=== PATIENT | male | born 1980 | race Caucasian/White ===

== ENCOUNTER 2018-04-25 09:20 | Emergency (ER) | payer SELFPAY ==
[2018-04-25 09:30] VITALS: BP 144/89
[2018-04-25] MEDS ORDERED: KETOROLAC TROMETHAMINE 60 MG/2 ML SDV IM ONE (10:06)
--- NOTE | 2018-04-25 10:12 | ER Document Report ---
HPI - HPI Time Seen by Provider: 04/25/18 09:49 Pain Level: 4 Notes: Patient is a 38-year-old male with no significant past medical history aside from issues with carpal tunnel syndrome who presents the emergency department complaining of bilateral hand numbness, pain, and tingling after using his hands a lot every day. Patient states that it was occurring about once a week, but has become daily since then. Patient states that he works constantly with his hands. Patient states that he will wake up in the middle night and his hands will be in pain and numb. He has not seen a specialist for this issue. No other known injury or bruising. Denies any headache, fever, neck pain, URI, sore throat, chest pain, palpitations, syncope, cough, shortness of breath, wheeze, dyspnea, abdominal pain, nausea/vomiting/diarrhea, urinary retention, dysuria, hematuria, loss of control of bowel or bladder, saddle anesthesia, muscle paralysis, or rash. - ROS Systems Reviewed and Negative: Yes All other systems reviewed and negative - CONSTITUTIONAL Constitutional: DENIES: Fever, Chills - EENT EENT: REPORTS: Sore Throat, Ear Pain. DENIES: Eye problems - NEURO Neurology: DENIES: Headache, Weakness, Vision blurred, Dizzinesss / Vertigo - CARDIOVASCULAR Cardiovascular: DENIES: Chest pain - RESPIRATORY Respiratory: REPORTS: Coughing - INTERMITTENT. DENIES: Trouble Breathing - GASTROINTESTINAL Gastrointestinal: DENIES: Abdominal Pain, Black / Bloody Stools - URINARY Urinary: DENIES: Dysuria, Urgency, Frequency - REPRODUCTIVE Reproductive: DENIES: : - MUSCULOSKELETAL Musculoskeletal: REPORTS: Extremity pain Past Medical History - Social History Smoking Status: Current Every Day Smoker Chew tobacco use (# tins/day): No Frequency of alcohol use: Social Drug Abuse: None Family History: Arthritis, CVA, Hyperlipidemia, Hypertension, Malignancy, Thyroid Disfunction Patient has suicidal ideation: No Patient has homicidal ideation: No Pulmonary Medical History: Reports: Hx Asthma Neurological Medical History: Reports: Hx Migraine Renal/ Medical History: Denies: Hx Peritoneal Dialysis Musculoskeletal Medical History: Reports Hx Musculoskeletal Trauma - Clavicle fracture Psychiatric Medical History: Reports: Hx Depression Traumatic Medical History: Reports: Hx Fractures - Clavicle - Immunizations Immunizations up to date: No Hx Diphtheria, Pertussis, Tetanus Vaccination: No Vertical Provider Document - CONSTITUTIONAL Agree With Documented VS: Yes Notes: PHYSICAL EXAMINATION: GENERAL: Well-appearing, well-nourished and in no acute distress. NECK: Normal range of motion, supple without lymphadenopathy. Spurling negative. No midline tenderness. LUNGS: Breath sounds clear to auscultation bilaterally and equal. No wheezes rales or rhonchi. HEART: Regular rate and rhythm without murmurs, rubs, gallops. Musculoskeletal: Wrists b/l: FROM to passive/active. Strength 5+/5. N/V intact distal. + tinel/phalen b/l. Extremities: No cyanosis, clubbing, or edema b/l. Peripheral pulses 2+. Capillary refill less than 3 seconds. NEUROLOGICAL: Normal speech, normal gait. Normal sensory, motor exams PSYCH: Normal mood, normal affect. SKIN: Warm, Dry, normal turgor, no rashes or lesions noted. - INFECTION CONTROL TRAVEL OUTSIDE OF THE U.S. IN LAST 30 DAYS: No Course - Re-evaluation Re-evalutation: 04/25/18 10:08 Patient is an afebrile, well-hydrated, 38-year-old male who presents to the ED with b/l wrist/hand pain, suspect CTS with positive tinel/phalen. Vitals are acceptable without any significant tachycardia, tachypnea, or hypoxia. PE is otherwise unremarkable for any neurovascular compromise, obvious tendon/ligament rupture, obvious fracture/dislocation, septic joint. Cock up given today b/l along with toradol IM. Patient is nontoxic-appearing. . Conservative measures otherwise for symptoms. Recheck with your PCM in 3-5 days. Schedule a consult with orthopedics. Return to the ED with any worsening/concerning symptoms otherwise as reviewed in discharge. Patient is in agreement. - Vital Signs Vital signs: Temp Pulse Resp BP Pulse Ox 97.6 F 85 16 144/89 H 97 04/25/18 09:29 04/25/18 09:29 04/25/18 09:29 04/25/18 09:29 04/25/18 09:29 Discharge - Discharge Clinical Impression: Pain of both wrist joints, Carpal tunnel syndrome on both sides Condition: Stable Disposition: HOME, SELF-CARE Instructions: Carpal Tunnel Syndrome ([facility]) Additional Instructions: Rest, Ice, Compression, Elevation Use splint as directed Tylenol/ibuprofen as needed F/u with your PCP in 3-5 days for a recheck Call orthopedics tomorrow to schedule an appointment for further evaluation and management Return to the ED with any worsening symptoms and/or development of fever, headache, chest pain, palpitations, syncope, shortness of breath, trouble breathing, abdominal pain, n/v/d, muscle weakness/paralysis, numbness/tingling, swelling, redness, or other worsening symptoms that are concerning to you. Prescriptions: Diclofenac Sodium [Voltaren] 4 gm TP QID PRN #100 gel..gm. PRN Reason: Forms: Elevated Blood Pressure, Smoking Cessation Education Referrals: [facility] [Provider Group] - Follow up in 3-5 days
== END 2018-04-25 10:56 | disposition home or self-care (01) ==
LOC: ER 09:20
DX: G56.03 Carpal tunnel syndrome, bilateral upper limbs (principal); M25.531 Pain in right wrist; M25.532 Pain in left wrist; R20.0 Anesthesia of skin; M79.641 Pain in right hand; M79.642 Pain in left hand; R05 Cough; J02.9 Acute pharyngitis, unspecified; H92.09 Otalgia, unspecified ear; F17.200 Nicotine dependence, unspecified, uncomplicated; J45.909 Unspecified asthma, uncomplicated
CPT/HCPCS: 99283; 96372; L3908 ×2; J1885

== ENCOUNTER 2018-08-16 20:46 | Emergency (ER) | payer SELFPAY ==
[2018-08-16 21:44] LABS: ABSOLUTE BASOPHILS # (AUTO) 0.1 10^3/uL (0.0-0.2); ABSOLUTE EOSINOPHILS # (AUTO) 0.1 10^3/uL (0.0-0.6); ABSOLUTE LYMPHOCYTES (AUTO) 2.3 10^3/uL (0.5-4.7); ABSOLUTE MONOCYTES (AUTO) 1.1 10^3/uL (0.1-1.4); EOSINOPHILS % (AUTO) 1.1 % (0-6); HEMATOCRIT 45.5 % (37.9-51.0); LYMPHOCYTES % (AUTO) 21.5 % (13-45); MEAN CORPUSCULAR HEMOGLOBIN 31.8 pg (27.0-33.4); MEAN CORPUSCULAR HGB CONC 35.1 g/dL (32.0-36.0); MEAN CORPUSCULAR VOLUME 91 fl (80-97); MONOCYTES % (AUTO) 10.5 % (3-13); PLATELET COUNT 336 10^3/uL (150-450); RED BLOOD COUNT 5.03 10^6/uL (4.35-5.55); RED CELL DISTRIBUTION WIDTH 13.9 % (11.5-14.0); SEGMENTED NEUTROPHILS % (AUTO) 65.9 % (42-78); TOTAL CELLS COUNTED % (AUTO) 100 %; WHITE BLOOD COUNT 10.6 10^3/uL (4.0-10.5)
[2018-08-16 22:03] LABS: ALANINE AMINOTRANSFERASE 31 U/L (21-72); ALBUMIN 4.7 g/dL (3.5-5.0); ALCOHOL < 10 mg/dL (NONE DETECTED); ALKALINE PHOSPHATASE 103 U/L (38-126); ANION GAP 13 (5-19); ASPARTATE AMINO TRANSFERASE 22 U/L (17-59); BILIRUBIN,DIRECT 0.3 mg/dL (0.0-0.4); BILIRUBIN,TOTAL 0.9 mg/dL (0.2-1.3); BLOOD UREA NITROGEN 16 mg/dL (7-20); CALCIUM 9.8 mg/dL (8.4-10.2); CARBON DIOXIDE 25 mmol/L (22-30); CHLORIDE 98 mmol/L (98-107); GLUCOSE 111 mg/dL (75-110); SODIUM 136.4 mmol/L (137-145); TOTAL PROTEIN 7.5 g/dL (6.3-8.2)
[2018-08-16] MEDS ORDERED: LORAZEPAM INJ 2 MG/1 ML VIAL IV ONE (22:24)
[2018-08-16] MEDS ORDERED: NICOTINE 14 MG/24 HR PATCH.TD24 TD ONE (22:28)
--- NOTE | 2018-08-16 22:41 | ER Document Report ---
ED General <LIAM TYSONIME - Last Filed: 08/17/18 11:27> <JARET ROLDAN - Last Filed: 08/17/18 11:52> <HEENA GARVEY - Last Filed: 08/17/18 12:03> - General TRAVEL OUTSIDE OF THE U.S. IN LAST 30 DAYS: No <MIGUEL LOZANO - Last Filed: 08/17/18 20:19> - General Chief Complaint: ETOH Abuse Stated Complaint: ALCOHOL WITHDRAWAL Time Seen by Provider: 08/16/18 21:55 Primary Care Provider: [facility] [Outside] - 08/17/18 3:00 pm Notes: 33-year-old male with history of bipolar depression, alcoholism presents to the emergency department for alcohol relapse for 1 month and acute withdrawal today. Patient states he is deeply depressed and has had suicidal ideations. Patient does not have an active plan. Patient has no homicidal ideations. Patient states he normally drinks 1/4 to 1/2 gallon of whiskey per day but has had 2 beers today early this morning. Patient is tremulous and diaphoretic during interview. Patient states that he needs help. Patient feels like that "seizures are trying to happen". Patient has had withdrawal seizures in the past he states. Patient denies any fevers or recent illness, denies any auditory or visual hallucinations. Denies shortness of breath or chest pain, denies palpitations, but states that he feels that he is getting "smothered". Patient is tachycardic at approximately 120. (MIGUEL LOZANO) - Related Data Allergies/Adverse Reactions: propranolol [Propranolol] Allergy (Unknown, Verified 08/16/18 20:48) Past Medical History - Social History Smoking Status: Current Every Day Smoker Family History: Arthritis, CVA, Hyperlipidemia, Hypertension, Malignancy, Thyroid Disfunction Pulmonary Medical History: Reports: Hx Asthma Neurological Medical History: Reports: Hx Migraine Renal/ Medical History: Denies: Hx Peritoneal Dialysis Musculoskeletal Medical History: Reports Hx Musculoskeletal Trauma - Clavicle fracture Psychiatric Medical History: Reports: Hx Depression Traumatic Medical History: Reports: Hx Fractures - Clavicle - Immunizations Immunizations up to date: No Hx Diphtheria, Pertussis, Tetanus Vaccination: No <MIGUEL LOZANO - Last Filed: 08/17/18 20:19> Review of Systems - Review of Systems Constitutional: See HPI EENT: No symptoms reported Cardiovascular: See HPI Respiratory: See HPI Gastrointestinal: No symptoms reported Genitourinary: No symptoms reported Male Genitourinary: No symptoms reported Musculoskeletal: No symptoms reported Skin: No symptoms reported Hematologic/Lymphatic: No symptoms reported Neurological/Psychological: See HPI <ALEKSANDRMIGUEL BURGER - Last Filed: 08/17/18 20:19> Physical Exam <BLAKEMIGUEL - Last Filed: 08/17/18 20:19> - Vital signs Vitals: Temp Pulse Resp BP Pulse Ox 98.4 F 120 H 24 H 175/122 H 98 08/16/18 21:09 08/16/18 21:09 08/16/18 21:09 08/16/18 21:09 08/16/18 21:09 - Notes Notes: PHYSICAL EXAMINATION: Reviewed vital signs and charting by RN GENERAL: Alert, interacts well. No acute distress. HEAD: Normocephalic, atraumatic. EYES: Pupils equal and round. Extraocular movements intact. ENT: Oral mucosa moist, tongue midline. NECK: Full range of motion. Trachea midline. LUNGS: Clear to auscultation bilaterally, no wheezes, rales, or rhonchi. No respiratory distress. HEART: Regular rate and rhythm. No murmur ABDOMEN: soft, non-tender. No distention. Bowel sounds present EXTREMITIES: Moves all 4 extremities spontaneously. No edema, No cyanosis. PSYCH: Normal affect, depressed mood. Suicidal ideations with no active plan. SKIN: Warm, dry, normal turgor. No rashes or lesions noted. (MIGUEL LOZANO) Course - Laboratory Result Diagrams: 08/16/18 21:33 08/16/18 21:33 <PAULINA TYSON - Last Filed: 08/17/18 11:27> - Laboratory Result Diagrams: 08/16/18 21:33 08/16/18 21:33 <JARET ROLDAN - Last Filed: 08/17/18 11:52> - Laboratory Result Diagrams: 08/16/18 21:33 08/16/18 21:33 <HEENA GARVEY - Last Filed: 08/17/18 12:03> - Laboratory Result Diagrams: 08/16/18 21:33 08/16/18 21:33 <MIGUEL LOZANO - Last Filed: 08/17/18 20:19> - Re-evaluation Re-evalutation: 08/16/18 22:40 Patient comes here seeking help for acute alcohol withdrawal and suicidal ideations. Patient given Ativan 1 mg IV for tremulousness and for diaphoresis and tachycardia. 08/17/18 00:37 Patient responded well to the Ativan 1 mg IV. Patient heart rate is currently 90, respiratory rate 24, blood pressure 152/110. I initiated admission because of my concerns for alcohol withdrawal and potential decompensation is patient is a heavy drinker. Spoke with Dr. Yanes, hospitalist, who said that patient does not meet requirements for admission at this time. I do anticipate that the patient will decompensate and will remain in the ER as he is on IVC papers. 08/17/18 01:25 Patient lab work all returned and all within normal limits. Patient currently tachycardic at 110. I have ordered Ativan IV as needed. We will monitor panda ent here in the emergency department. 08/17/18 08:08 Patient at this point has been stable all night requiring an additional Ativan 1 mg IV. Patient has been sinus rhythm for the majority of the night with a brief period where he was in the low 100s. Most recent blood pressure 106/68, respirations 15, heart rate 94. Plan is to wait for psychiatric consultation and if patient does not meet criteria to be discharged we will discharge him with Librium. I have signed the patient out to Henea Garvey NP. (MIGUEL LOZANO) - Vital Signs Vital signs: Temp Pulse Resp BP Pulse Ox 98.2 F 106 H 16 136/123 H 99 08/17/18 04:09 08/17/18 12:14 08/17/18 12:14 08/17/18 12:14 08/17/18 12:14 - Laboratory Laboratory results interpreted by me: 08/16/18 08/16/18 08/16/18 21:33 21:33 22:34 WBC 10.6 H Sodium 136.4 L Glucose 111 H Urine Protein 30 H Urine Ketones TRACE H Urine Blood SMALL H Ur Leukocyte Esterase TRACE H Discharge <PAULINA TYSON - Last Filed: 08/17/18 11:27> <JARET ROLDAN - Last Filed: 08/17/18 11:52> <HEENA GARVEY - Last Filed: 08/17/18 12:03> <MIGUEL LOZANO - Last Filed: 08/17/18 20:19> - Discharge Clinical Impression: Alcohol withdrawal, Passive suicidal ideations Condition: Stable Disposition: HOME, SELF-CARE Additional Instructions: You have been evaluated both medical and behavioral health teams and been deemed appropriate for discharge. The behavioral health team was able to assist in locating a voluntary detox bed at the [facility]. You are highly encouraged to follow through with his voluntary placement. You have identified your mother as your transport to the [facility]. You are recommended to follow-up with both substance abuse and mental health services after your detox. AT ANY TIME, IF YOUR SYMPTOMS CHANGE SIGNIFICANTLY OR WORSEN OR YOU DEVELOP NEW SYMPTOMS, RETURN TO THE EMERGENCY DEPARTMENT IMMEDIATELY FOR RE-EVALUATION. Referrals: [facility] [Outside] - 08/17/18 3:00 pm
[2018-08-16 23:11] LABS: APPEARANCE,URINE CLEAR; BILIRUBIN,URINE NEGATIVE (NEGATIVE); COLOR,URINE YELLOW; GLUCOSE, URINE NEGATIVE (NEGATIVE); KETONES,URINE TRACE mg/dL (NEGATIVE); LEUKOCYTE ESTERASE,URINE TRACE (NEGATIVE); NITRITE,URINE NEGATIVE (NEGATIVE); PROTEIN,URINE 30 mg/dL (NEGATIVE); URINE SPECIFIC GRAVITY 1.019; UROBILINOGEN,URINE NEGATIVE mg/dL (<2.0)
[2018-08-16 23:28] LABS: URINE BARBITURATES SCREEN NEGATIVE; URINE BENZODIAZEPINES SCREEN NEGATIVE; URINE COCAINE SCREEN NEGATIVE; URINE MARIJUANA (THC) SCREEN NEGATIVE; URINE METHADONE SCREEN NEGATIVE; URINE PHENCYCLIDINE SCREEN NEGATIVE
[2018-08-16 23:32] LABS: URINE AMPHETAMINES SCREEN NEGATIVE
[2018-08-17] MEDS: LORAZEPAM INJ 2 MG/1 ML VIAL IV PRN ×3 (00:58→11:08)
[2018-08-17] MEDS ORDERED: ONDANSETRON HCL INJ/PF 4 MG/2 ML SDV IV ONE (07:20)
[2018-08-17] MEDS ORDERED: LORAZEPAM INJ 2 MG/1 ML VIAL IV ONE (07:20)
--- NOTE | 2018-08-17 08:34 | PSYCHOLOGICAL NOTE ---
Psych Note - Psych Note Date seen by psych provider: 08/17/18 Time seen by psych provider: 06:50 - 0700 Psych Note: Reason for Consult: Detox and Suicidal ideation 33-year-old male with history of bipolar depression, alcoholism presents to the emergency department for alcohol relapse for 1 month and acute withdrawal today. Patient states he is deeply depressed and has had suicidal ideations. Patient reports that approximately 1 month ago he relapsed and "lost e verything." He identifies the things he lost his "job, friends, belongings, trust, respect, phone" in addition to being unable to gather enough money for visitation with his daughter. He reports this happened because he relapsed. He disclosed he was sober for approximately 1 year and has been drinking up to a half a gallon a day for the last month. He reports this is an increase since the last time he had drink. Patient reports a diagnosis of bipolar however he has not been on any medication "in a long time... Almost 3 years." Patient has been inpatient detox and psychiatric treatment approximately 3 times. He reports that all 3 times was for both his suicidal ideation and for detox. He confirms he does not have access to any weapons and denies having a current plan. He reports that onset was approximately a couple weeks ago and states that mostly is just "ugly thoughts" however while he was working in [place] thought about how he could harm himself with "the tall buildings." Clinician contacted the [facility]. There is currently no beds available however they did conduct phone interview with patient. Clinician contacted [facility] in [place]; no bed availability at this time. Clinician received phone call from the [facility]. They have had a cancellation and now are able to offer the patient a voluntary bed at 3 PM. Patient confirms he can have his mother drive him. Patient is alert and orientated to person, place, time and circumstance. Mood is dysphoric with flat affect. Clinician notes patient is currently going through alcohol withdrawal and is demonstrating physical signs i.e. shaking. Patient endorses passive suicidal ideation i.e. no plans means or intent. Patient denies homicidal ideation. Delusions are absent behaviors congruent with an intact reality based presentation I organized and linear thought process. Eye contact is fair. Conversational speech is overall within normal rate, tone and prosody. Intellectual abilities appear to be within the average range. Attention and concentration are good. Insight, judgment, impulse control are fair. No medication recommendations at this time 291.81 (F10.239) Alcohol withdrawal; without perceptual disturbances 303.90 (F10.20) Alcohol use disorder; Severe 296.80 (F31.9) Unspecified bipolar disorder per history provided by patient Impression\\plan: Patient is cleared from acute psychiatric services. Patient reports passive suicidal ideation i.e. no plans means or intent. Patient expresses desire to for assistance in sobriety and currently needs detox. Patient engaged in phone interview with the [facility] and was later offered a bed for 3 PM today. Patient identifies his mother as his transport and confirms he will follow through with this voluntary placement. Patient is recommended to follow-up with both substance abuse and mental health services after he completes detox. Dr. Brandon was consulted to care management this patient; attending physicians in agreement with recommendations and disposition.
--- NOTE | 2018-08-17 09:42 | ER Document Report ---
Doctor's Note Notes: 08/17/18 09:41 Rounds: Chart reviewed and patient interviewed. Patient says he is an alcoholic who had gone for couple of years without drinking but started back drinking about a month ago due to his depression. He has a history of bipolar disorder. Having suicidal thoughts. Has been treated with lorazepam IV. Drug screen negative. Alcohol negative. Vital signs are all normal. Patient is awake and alert and neurologically intact. Patient appears to be medically stable for transfer or discharge. Dari Faust MD
[2018-08-17] MEDS ORDERED: LORAZEPAM 1 MG TABLET PO ONE (11:51)
[2018-08-17 12:16] VITALS: BP 136/123
== END 2018-08-17 12:25 | disposition home or self-care (01) ==
LOC: ER 20:46
DX: F10.239 Alcohol dependence with withdrawal, unspecified (principal); R45.851 Suicidal ideations; R00.0 Tachycardia, unspecified; Z79.899 Other long term (current) drug therapy; F17.200 Nicotine dependence, unspecified, uncomplicated; J45.909 Unspecified asthma, uncomplicated
CPT/HCPCS: 99285; 36415; 80307 ×2; 83735; 85025; 80053; 81001; J2060 ×2; J2405

== ENCOUNTER 2019-04-25 11:40 | Emergency (ER) | payer SELFPAY ==
[2019-04-25] MEDS ORDERED: KETOROLAC TROMETHAMINE INJ/PF 30 MG/1 ML SDV IV ONE (14:42)
[2019-04-25] MEDS ORDERED: ONDANSETRON HCL INJ/PF 4 MG/2 ML SDV IV ONE (14:42)
[2019-04-25] MEDS ORDERED: NORMAL SALINE 1000 ML 1,000 ML IV ONE ×2 (14:42→21:34)
--- NOTE | 2019-04-25 14:44 | ER Document Report ---
ED Medical Screen (RME) - General Stated Complaint: VOMITING/FEVER/BLOOD IN URINE Notes: HPI: 39-year-old male presenting to the emergency department complaining of hematuria that began 5 to 6 days ago. Patient began having chills nausea and vomiting. Did not have abdominal or flank pain initially, states the hematuria seemed to clear up 3 days ago then reoccurred yesterday. He began having increasing pain in the bilateral flanks, abdomen and began having vomiting and nausea again today. Has not had a definitive fever but has had chills. Patient states that he is circumcised. No history of kidney stones or UTI I have greeted and performed a rapid initial assessment of this patient. A comprehensive ED assessment and evaluation of the patient, analysis of test results and completion of the medical decision making process will be conducted by additional ED providers PHYSICAL EXAMINATION: GENERAL: Well-appearing, well-nourished and in mild acute distress. HEAD: Atraumatic, normocephalic. EYES: sclera anicteric, conjunctiva are normal. ENT: Moist mucous membranes. NECK: Normal range of motion LUNGS: Normal work of breathing, clear to auscultation HEART: 2+ radial pulses bilaterally, mild tachycardia ABD: limited by positioning for exam in triage. Mild generalized abdominal discomfort on palpation, mild bilateral CVA tenderness. EXTREMITIES: no pitting or edema. No cyanosis. NEUROLOGICAL: No focal neurological deficits. Moves all extremities spontaneously and on command. PSYCH: Normal mood, normal affect. SKIN: Warm, Dry, normal turgor, no rashes or lesions noted. TRAVEL OUTSIDE OF THE U.S. IN LAST 30 DAYS: No - Related Data Allergies/Adverse Reactions: propranolol [Propranolol] Allergy (Unknown, Verified 04/25/19 14:34) Past Medical History Pulmonary Medical History: Reports: Hx Asthma Neurological Medical History: Reports: Hx Migraine Renal/ Medical History: Denies: Hx Peritoneal Dialysis Musculoskeltal Medical History: Reports Hx Musculoskeletal Trauma - Clavicle fracture Psychiatric Medical History: Reports: Hx Depression Traumatic Medical History: Reports: Hx Fractures - Clavicle - Immunizations Immunizations up to date: No Hx Diphtheria, Pertussis, Tetanus Vaccination: No Physical Exam - Vital signs Vitals: Temp Pulse Resp BP Pulse Ox 97.7 F 104 H 20 151/99 H 98 04/25/19 11:44 04/25/19 11:44 04/25/19 11:44 04/25/19 11:44 04/25/19 11:44 Course - Vital Signs Vital signs: Temp Pulse Resp BP Pulse Ox 97.7 F 104 H 20 151/99 H 98 04/25/19 11:44 04/25/19 11:44 04/25/19 11:44 04/25/19 11:44 04/25/19 11:44
[2019-04-25 15:42] LABS: ABSOLUTE EOSINOPHILS # (AUTO) 0.5 10^3/uL (0.0-0.6); ABSOLUTE LYMPHOCYTES (AUTO) 1.9 10^3/uL (0.5-4.7); ABSOLUTE MONOCYTES (AUTO) 0.7 10^3/uL (0.1-1.4); ABSOLUTE NEUT (AUTO) 7.9 10^3/uL (1.7-8.2); BASOPHILS % (AUTO) 0.3 % (0-2); EOSINOPHILS % (AUTO) 4.9 % (0-6); HEMATOCRIT 45.1 % (37.9-51.0); HEMOGLOBIN 15.3 g/dL (13.5-17.0); LYMPHOCYTES % (AUTO) 16.8 % (13-45); MEAN CORPUSCULAR HEMOGLOBIN 31.7 pg (27.0-33.4); MEAN CORPUSCULAR HGB CONC 33.9 g/dL (32.0-36.0); MEAN CORPUSCULAR VOLUME 93 fl (80-97); MONOCYTES % (AUTO) 6.1 % (3-13); PLATELET COUNT 290 10^3/uL (150-450); RED BLOOD COUNT 4.83 10^6/uL (4.35-5.55); SEGMENTED NEUTROPHILS % (AUTO) 71.9 % (42-78); TOTAL CELLS COUNTED % (AUTO) 100 %; WHITE BLOOD COUNT 11.1 10^3/uL (4.0-10.5)
[2019-04-25 15:53] LABS: APPEARANCE,URINE CLEAR; BILIRUBIN,URINE NEGATIVE (NEGATIVE); COLOR,URINE YELLOW; GLUCOSE, URINE NEGATIVE (NEGATIVE); KETONES,URINE NEGATIVE (NEGATIVE); LEUKOCYTE ESTERASE,URINE NEGATIVE (NEGATIVE); NITRITE,URINE NEGATIVE (NEGATIVE); PROTEIN,URINE NEGATIVE (NEGATIVE); URINE SPECIFIC GRAVITY 1.005; UROBILINOGEN,URINE NEGATIVE mg/dL (<2.0)
[2019-04-25 15:59] LABS: ALBUMIN 4.8 g/dL (3.5-5.0); ALKALINE PHOSPHATASE 102 U/L (38-126); ANION GAP 12 (5-19); ASPARTATE AMINO TRANSFERASE 21 U/L (17-59); BILIRUBIN,TOTAL 0.5 mg/dL (0.2-1.3); BLOOD UREA NITROGEN 9 mg/dL (7-20); CALCIUM 9.6 mg/dL (8.4-10.2); CARBON DIOXIDE 30 mmol/L (22-30); CHLORIDE 97 mmol/L (98-107); GLUCOSE 92 mg/dL (75-110); POTASSIUM 4.2 mmol/L (3.6-5.0); TOTAL PROTEIN 7.7 g/dL (6.3-8.2)
[2019-04-25] MEDS ORDERED: ONDANSETRON HCL INJ/PF 4 MG/2 ML SDV ONE (16:50)
[2019-04-25] MEDS ORDERED: KETOROLAC TROMETHAMINE INJ/PF 30 MG/1 ML SDV ONE (16:50)
--- NOTE | 2019-04-25 18:02 | RADIOLOGY REPORT (SQ) ---
EXAM DESCRIPTION: CT ABD/PELVIS WITH IV ONLY COMPLETED DATE/TIME: 04/25/2019 5:32 pm REASON FOR STUDY: flank pain/hematuria COMPARISON: None. TECHNIQUE: CT scan of the abdomen and pelvis performed using helical scanning technique with dynamic intravenous contrast injection. No oral contrast. Images reviewed with lung, soft tissue, and bone windows. Reconstructed coronal and sagittal MPR images reviewed. Delayed images for evaluation of the urinary system also acquired. All images stored on PACS. All CT scanners at this facility use dose modulation, iterative reconstruction, and/or weight based d osing when appropriate to reduce radiation dose to as low as reasonably achievable (ALARA). [facility]: Dose Right [facility]: CareDose [facility]: Dose Right [facility]: Teradose 4D [facility]: [id number] CONTRAST TYPE AND DOSE: contrast/concentration: Isovue 350.00 mg/ml; Total Contrast Delivered: 99.0 ml; Total Saline Delivered: 57.0 ml RENAL FUNCTION: None required. The patient is less than 50 years old. RADIATION DOSE: CT Rad equipment meets quality standard of care and radiation dose reduction techniq ues were employed. CTDIvol: 14.7 - 17.6 mGy. DLP: 1731 mGy-cm.. LIMITATIONS: None. FINDINGS: LOWER CHEST: No significant findings. No nodules or infiltrates. LIVER: Subcentimeter hypodense lesion adjacent to the gallbladder fossa, likely cyst but difficult to characterize secondary to size. No additional discrete lesions. No intrahepatic ductal dilation. SPLEEN: Normal size. No focal lesions. PANCREAS: No masses. No significant calcifications. No adjacent inflammation or peripancreatic fluid collections. Pancreatic duct not dilated. GALLBLADDER: No identified stones by CT criteria. No inflammatory changes to suggest cholecystitis. ADRENAL GLANDS: No significant masses or asymmetry. RIGHT KIDNEY AND URETER: No solid masses. Likely punctate nonobstructing upper pole stone. No hyd ronephrosis or hydroureter. LEFT KIDNEY AND URETER: No solid masses. 4 mm stone within the distal left ureter with minimal fulln ess of the upstream proximal ureter. Punctate nonobstructing interpolar stone. No hydronephrosis o r hydroureter. AORTA AND VESSELS: No aneurysm. No dissection. Renal arteries, SMA, celiac without stenosis. RETROPERITONEUM: No retroperitoneal adenopathy, hemorrhage or masses. BOWEL AND PERITONEAL CAVITY: No masses or inflammatory changes. No free fluid or peritoneal masses. APPENDIX: Normal. PELVIS: No mass. No free fluid. Normal bladder. ABDOMINAL WALL: No masses. No hernias. BONES: No significant or acute findings. OTHER: No other significant finding. IMPRESSION: 4 mm stone within the distal left ureter. Mild fullness of the upstream ureter without significant hydronephrosis. Additional punctate bilateral nonobstructing stones. Normal appendix. TECHNICAL DOCUMENTATION: JOB ID: [id number] Quality ID # [id number]: Final reports with documentation of one or more dose reduction techniques (e.g., Au tomated exposure control, adjustment of the mA and/or kV according to patient size, use of iterative reconstruction technique) 2010 [employer]- All Rights Reserved Reading location - IP/workstation name: [email or web address]
[2019-04-25] MEDS ORDERED: MORPHINE SULFATE 10 MG/ML INJ IV ONE (21:34)
[2019-04-25] MEDS ORDERED: TAMSULOSIN HCL 0.4 MG CAP.SR.24H PO ONE (21:34)
[2019-04-25] MEDS ORDERED: IPRATROPIUM/ALBUTEROL 0.5-2.5 MG/3 ML AMPUL NEB ONE (21:35)
--- NOTE | 2019-04-25 21:35 | ER Document Report ---
ED Medical Screen (RME) - General Chief Complaint: Flank Pain Stated Complaint: VOMITING/FEVER/BLOOD IN URINE Time Seen by Provider: 04/25/19 21:19 Mode of Arrival: Ambulatory Information source: Patient Notes: 39-year-old male presents emergency department 4-day history of hematuria and left flank pain. Denies any history of stones. He does report occasional chills and cold sweats. Reports nausea, denies vomiting or diarrhea. Nothing makes the pain worse or better. He states he tried taking Azo at home, states this made the bleeding appeared to be worse. And also made the pain worse. TRAVEL OUTSIDE OF THE U.[place]. IN LAST 30 DAYS: No - Related Data Allergies/Adverse Reactions: propranolol [Propranolol] Allergy (Unknown, Verified 04/25/19 14:34) Home Medications: [email or web address] Past Medical History - General Information source: Patient - Social History Chew tobacco use (# tins/day): No Frequency of alcohol use: Social Drug Abuse: Marijuana Family history: Reviewed & Not Pertinent Pulmonary Medical History: Reports: Hx Asthma Neurological Medical History: Reports: Hx Migraine Renal/ Medical History: Denies: Hx Peritoneal Dialysis Musculoskeltal Medical History: Reports Hx Musculoskeletal Trauma - Clavicle fracture Psychiatric Medical History: Reports: Hx Depression Traumatic Medical History: Reports: Hx Fractures - Clavicle - Immunizations Immunizations up to date: No Hx Diphtheria, Pertussis, Tetanus Vaccination: No Physical Exam - Vital signs Vitals: Temp Pulse Resp BP Pulse Ox 97.7 F 104 H 20 151/99 H 98 04/25/19 11:44 04/25/19 11:44 04/25/19 11:44 04/25/19 11:44 04/25/19 11:44 Course - Vital Signs Vital signs: Temp Pulse Resp BP Pulse Ox 97.7 F 104 H 20 151/99 H 98 04/25/19 11:44 04/25/19 11:44 04/25/19 11:44 04/25/19 11:44 04/25/19 11:44 - Laboratory Result Diagrams: 04/25/19 15:00 04/25/19 15:00 Laboratory results interpreted by me: 04/25/19 04/25/19 15:00 15:00 WBC 11.1 H Chloride 97 L
--- NOTE | 2019-04-25 21:41 | ER Document Report ---
ED GI/ - General Chief Complaint: Flank Pain Stated Complaint: VOMITING/FEVER/BLOOD IN URINE Time Seen by Provider: 04/25/19 21:19 Mode of Arrival: Ambulatory Information source: Patient Notes: 39-year-old male presents emergency department 4-day history of hematuria and left flank pain. Denies any history of stones. He does report occasional chills and cold sweats. Reports nausea, denies vomiting or diarrhea. Nothing makes the pain worse or better. He states he tried taking Azo at home, states this made the bleeding appeared to be worse. And also made the pain worse. TRAVEL OUTSIDE OF THE [place] IN LAST 30 DAYS: No - Related Data Allergies/Adverse Reactions: propranolol [Propranolol] Allergy (Unknown, Verified 04/25/19 14:34) Home Medications: [facility] Past Medical History - General Information source: Patient - Social History Smoking Status: Current Every Day Smoker Chew tobacco use (# tins/day): No Frequency of alcohol use: Social Drug Abuse: Marijuana Family History: Arthritis, CVA, Hyperlipidemia, Hypertension, Malignancy, Thyroid Disfunction Patient has suicidal ideation: No Patient has homicidal ideation: No Pulmonary Medical History: Reports: Hx Asthma Neurological Medical History: Reports: Hx Migraine Renal/ Medical History: Denies: Hx Peritoneal Dialysis Musculoskeletal Medical History: Reports Hx Musculoskeletal Trauma - Clavicle fracture Psychiatric Medical History: Reports: Hx Depression Traumatic Medical History: Reports: Hx Fractures - Clavicle - Immunizations Immunizations up to date: No Hx Diphtheria, Pertussis, Tetanus Vaccination: No Review of Systems - Review of Systems Constitutional: Chills Respiratory: Wheezing Genitourinary: Dysuria, Flank pain, Hematuria -: Yes All other systems reviewed and negative Physical Exam - Vital signs Vitals: Temp Pulse Resp BP Pulse Ox 97.7 F 104 H 20 151/99 H 98 04/25/19 11:44 04/25/19 11:44 04/25/19 11:44 04/25/19 11:44 04/25/19 11:44 - Notes Notes: PHYSICAL EXAMINATION: GENERAL: Well-appearing, well-nourished and in no acute distress. HEAD: Atraumatic, normocephalic. EYES: Pupils equal round and reactive to light, extraocular movements intact, sclera anicteric, conjunctiva are normal. ENT: Nares patent, oropharynx clear without exudates. Moist mucous membranes. NECK: Normal range of motion, supple without lymphadenopathy LUNGS: Breath sounds clear to auscultation bilaterally and equal. Bilateral inspiratory and expiratory wheezes noted. Mildly increased work of breathing. HEART: Regular rate and rhythm without murmurs ABDOMEN: Soft, nontender, nondistended abdomen. No guarding, no rebound. No masses appreciated. Left CVA tenderness. Musculoskeletal: Normal range of motion, no pitting or edema. No cyanosis. NEUROLOGICAL: Cranial nerves grossly intact. Normal speech, normal gait. Normal sensory, motor exams PSYCH: Normal mood, normal affect. SKIN: Warm, Dry, normal turgor, no rashes or lesions noted. Course - Re-evaluation Re-evalutation: Patient with 4 mm stone in the left UVJ, no hydronephrosis or hydroureter. Patient does appear to be continued to have pain at the time my assessment. The time my assessment he is already received 1 L of normal saline, IV Toradol and IV Zofran. Will order additional liter of fluids, IV morphine and Flomax. Plan to at this time will discharge with return precautions once pain controlled and follow-up recommendations. - Vital Signs Vital signs: Temp Pulse Resp BP Pulse Ox 97.7 F 104 H 20 151/99 H 98 04/25/19 11:44 04/25/19 11:44 04/25/19 11:44 04/25/19 11:44 04/25/19 11:44 - Laboratory Result Diagrams: 04/25/19 15:00 04/25/19 15:00 Laboratory results interpreted by me: 04/25/19 04/25/19 15:00 15:00 WBC 11.1 H Chloride 97 L Discharge - Discharge Clinical Impression: Renal calculus, left, Nausea Condition: Stable Disposition: HOME, SELF-CARE Additional Instructions: Your symptoms should improve over the course of the next one week. If you continue to have pain for greater than one week or your pain is not controlled with the pain medications that you have been sent home with you need to return to the emergency department. Please also return if you develop fever, persistent vomiting, or any other symptoms that are concerning to you. You should take ibuprofen 600 mg every 6 hours and use the Percocet as prescribed only for pain not controlled by ibuprofen. You are also been sent home with a medication called Flomax to help pass the stone. You've been given Zofran to assist with nausea. Please follow-up with urology in the next 2-3 days IF not improving. Prescriptions: Tamsulosin HCl [Flomax] 0.4 mg PO DAILY #7 cap.er.24h Oxycodone HCl/Acetaminophen [Percocet 5-325 mg Tablet] 1 - 2 tab PO Q4H PRN #15 tablet PRN Reason: Ondansetron [Zofran Odt 4 mg Tablet] 1 - 2 tab PO Q4H PRN #15 tab.rapdis PRN Reason: For Nausea/Vomiting Referrals: GERI AQUINO MD [NO LOCAL MD] - Follow up as needed
[2019-04-25] MEDS ORDERED: ONDANSETRON ODT 4 MG TAB (6 TAB/ER DISP) PO PRN (21:43)
[2019-04-25] MEDS ORDERED: HYDROCODONE/ACETAMINOPHEN 5-325 MG (6 TAB/ER DISP) PO PRN (21:43)
[2019-04-26 00:21] VITALS: BP 110/54
== END 2019-04-26 00:20 | disposition home or self-care (01) ==
LOC: ER 11:40
DX: N20.0 Calculus of kidney (principal); R11.0 Nausea; R10.9 Unspecified abdominal pain; R30.0 Dysuria; R31.9 Hematuria, unspecified; F17.200 Nicotine dependence, unspecified, uncomplicated; J45.909 Unspecified asthma, uncomplicated
CPT/HCPCS: 94640; 99284; 96361; 96374; 96375; 36415; 87040; 85025; 87077; 80053; 81001; 87186; 87150 ×26; 74177; J1885; J2270; J2405; J7030; J7620

== ENCOUNTER 2019-06-01 11:15 | Emergency (ER) | payer SELFPAY ==
--- NOTE | 2019-06-01 12:09 | ER Document Report ---
HPI - HPI Patient complains to provider of: URI Onset: Other - 2 days Onset/Duration: Gradual Quality of pain: Achy Context: Patient presents to the RTC for complaints of upper respiratory symptoms. Patient complains of chills body aches, runny nose, sore throat and cough. Patient denies any shortness of breath. Patient does complain of headache with nausea and some abdominal tenderness. Patient does have an underlying history of asthma and kidney stones and does smoke a pack per day. Associated Symptoms: Body/muscle aches, Nonproductive cough, Rhinnorhea Exacerbated by: Denies Relieved by: Denies Similar symptoms previously: Yes Recently seen / treated by doctor: No - ROS ROS below otherwise negative: Yes Systems Reviewed and Negative: Yes All other systems reviewed and negative - CONSTITUTIONAL Constitutional: REPORTS: Chills - EENT EENT: REPORTS: Sore Throat, Nasal Drainage-Clear, Congestion - RESPIRATORY Respiratory: REPORTS: Coughing - GASTROINTESTINAL Gastrointestinal: REPORTS: Nausea, Patient vomiting - REPRODUCTIVE Reproductive: DENIES: : - DERM Skin Color: Normal Skin Problems: None Past Medical History - General Information source: Patient - Social History Smoking Status: Current Every Day Smoker Occupation: self employed Family History: Arthritis, CVA, Hyperlipidemia, Hypertension, Malignancy, Thyroid Disfunction Pulmonary Medical History: Reports: Hx Asthma Neurological Medical History: Reports: Hx Migraine Renal/ Medical History: Reports: Hx Kidney Stones. Denies: Hx Peritoneal Dialysis Musculoskeletal Medical History: Reports Hx Musculoskeletal Trauma - Clavicle fracture Psychiatric Medical History: Reports: Hx Depression Traumatic Medical History: Reports: Hx Fractures - Clavicle Surgical Hx: Negative - Immunizations Immunizations up to date: No Hx Diphtheria, Pertussis, Tetanus Vaccination: No Vertical Provider Document - CONSTITUTIONAL Agree With Documented VS: Yes Exam Limitations: No Limitations General Appearance: WD/WN, No Apparent Distress - INFECTION CONTROL TRAVEL OUTSIDE OF THE [place] IN LAST 30 DAYS: No - HEENT HEENT: Atraumatic, Normocephalic, Pharyngeal Tenderness. negative: Pharyngeal Exudate, Pharyngeal Erythema - NECK Neck: Lymphadenopathy-Left, Lymphadenopathy-Right - RESPIRATORY Respiratory: No Respiratory Distress, Chest Non-Tender, Wheezing - Scattered wheezing - CARDIOVASCULAR Cardiovascular: Regular Rate, Regular Rhythm, No Murmur - MUSCULOSKELETAL/EXTREMETIES Musculoskeletal/Extremeties: MAEW - NEURO Level of Consciousness: Awake, Alert, Appropriate Motor/Sensory: No Motor Deficit - DERM Integumentary: Warm, Dry, No Rash Course - Re-evaluation Re-evalutation: 06/01/19 12:21 The patient was evaluated during the global Covid 19 pandemic, and that diagnosis was suspected/considered upon their initial presentation. Their evaluation, treatment and testing was consistent with current guidelines for patients who present with complaints or symptoms that may be related to Covid 19. Patient presents with upper respiratory symptoms worrisome for possible Covid 19. Patient does not have emergency worring symptoms such as difficulty breathing, shortness of breath, confusion or cyanosis. Patient appears suitable for discharge as they are not of an advanced age, do not have any chronic medical conditions such as diabetes, CAD, immune deficiency, or chronic kidney disease. Patient's vital signs are stable and patient is nontoxic in appearance. Good return precautions have been discussed with patient, patient verbalized understanding and is agreeable with discharge plan of care at this time. The patient has been informed that they may have pre-hypertension or hypertension based on a blood pressure reading in the emergency department. I recommend that patient call the primary care provider listed on their discharge instructions or a physician of their choice by this week to arrange follow-up for further evaluation of possible pre-hypertension or hypertension. - Laboratory Laboratory results interpreted by me: 06/01/19 14:30 Labs- Entire Visit 06/01/19 06/01/19 11:49 11:49 Influenza A (Rapid) NEGATIVE Influenza B (Rapid) NEGATIVE Group A Strep Rapid NEGATIVE Discharge - Discharge Clinical Impression: Wheezing, covid 19 screening, Elevated blood pressure reading Upper respiratory infection Qualifiers: URI type: unspecified URI Qualified Code(s): J06.9 - Acute upper respiratory infection, unspecified Condition: Stable Disposition: HOME, SELF-CARE Instructions: Upper Respiratory Illness ([facility]) Additional Instructions: Patient was provided with discharge information including: As a person under investigation for Covid 19, the [place] department of Health and Human Services, division of public health advises you to adhere to the following guidance until your test results are reported to you. If your test result is positive, you will receive additional information from your provider and your local health department at that time. Remain at home until you are cleared by the health provider or public health authorities. Keep a log of visitors to your home, notify any visitors to your home of your isolation status. If you plan to move to a new address or leave the county, notify the local health department in your County. Call your doctor or seek care if you have an urgent medical need. Before see [facility], call ahead to get instructions from the provider before arriving at the medical office clinic or hospital. Notify them that you are being tested for the virus that causes Covid 19 so that arrangements can be made, as necessary, to prevent transmission to others in the healthcare setting. Next, notify the local health department in your county. If a medical emergency arises and you need to call 911, inform the first responders that you are being tested for the virus that causes Covid 19. Next, notify the [facility] department in your critical access hospital. Prescriptions: Inhaler,Assist Device,Accesory [Optichamber] 1 each MC Q4 PRN #1 each PRN Reason: Albuterol Sulfate [Proair Hfa Inhalation Aerosol 8.5 gm Mdi] 2 puff IH Q4 PRN #1 mdi PRN Reason: Referrals: LOCALMD,NO [Primary Care Provider] - Follow up as needed
[2019-06-01 12:41] LABS: A TYPE INFLUENZA AG NEGATIVE (NEGATIVE); B INFLUENZA AG NEGATIVE (NEGATIVE)
[2019-06-01 14:31] VITALS: BP 176/110
== END 2019-06-01 14:44 | disposition home or self-care (01) ==
LOC: EDRDC 11:15
DX: J06.9 Acute upper respiratory infection, unspecified (principal); R03.0 Elevated blood-pressure reading, without diagnosis of hypertension; M79.10 Myalgia, unspecified site; R06.2 Wheezing; F17.200 Nicotine dependence, unspecified, uncomplicated; Z20.828 Contact with and (suspected) exposure to other viral communicable diseases; Z87.442 Personal history of urinary calculi
CPT/HCPCS: 87070; 87635; 87804; 87880; 99211

== ENCOUNTER 2019-08-25 23:53 | Emergency (ER) | payer SELFPAY ==
--- NOTE | 2019-08-26 00:14 | ER Document Report ---
ED Medical Screen (RME) - General Chief Complaint: ETOH Abuse Stated Complaint: ALCOHOL INTOXICATION Primary Care Provider: KERWIN SHAW [Primary Care Provider] - Follow up as needed Notes: Patient is a 39-year-old male who presents to the emergency department, dropped off by his mother who he states he lives with for alcohol intoxication. Patient was found sleeping on the floor in the waiting room. He is very aggressive with clenched fists, continues to stare down staff and will not answers questions appropriately. He says he has been drinking a lot of vodka. He will not give any specifics. States he is been using drugs but will not say which drugs. He is very avoidant of conversation and answering questions. Appears intoxicated. Does not appear to have any physical injuries. History and examination limited in triage secondary to patient's level of cooperation and intoxication. I have treated and performed a rapid initial assessment of this patient. A comprehensive ED assessment and evaluation of the patient, analysis of test results and completion of medical decision making process will be conducted by additional ED providers. TRAVEL OUTSIDE OF THE [place] IN LAST 30 DAYS: No - Related Data Allergies/Adverse Reactions: propranolol [Propranolol] Allergy (Unknown, Verified 04/25/19 14:34) Past Medical History Pulmonary Medical History: Reports: Hx Asthma Neurological Medical History: Reports: Hx Migraine Renal/ Medical History: Reports: Hx Kidney Stones. Denies: Hx Peritoneal Dialysis Musculoskeltal Medical History: Reports Hx Musculoskeletal Trauma - Clavicle fracture Psychiatric Medical History: Reports: Hx Depression Traumatic Medical History: Reports: Hx Fractures - Clavicle - Immunizations Immunizations up to date: No Hx Diphtheria, Pertussis, Tetanus Vaccination: No Physical Exam - Vital signs Vitals: Temp Pulse Resp BP Pulse Ox 99.0 F 106 H 20 147/82 H 95 08/26/19 00:06 08/26/19 00:06 08/26/19 00:06 08/26/19 00:06 08/26/19 00:06 Course - Vital Signs Vital signs: Temp Pulse Resp BP Pulse Ox 99.0 F 106 H 20 147/82 H 95 08/26/19 00:06 08/26/19 00:06 08/26/19 00:06 08/26/19 00:06 08/26/19 00:06 Doctor's Discharge - Discharge Referrals: KERWIN SHAW [Primary Care Provider] - Follow up as needed
[2019-08-26 01:03] LABS: HEMATOCRIT 49.1 % (37.9-51.0); HEMOGLOBIN 16.2 g/dL (13.5-17.0); MEAN CORPUSCULAR HEMOGLOBIN 31.4 pg (27.0-33.4); MEAN CORPUSCULAR HGB CONC 32.9 g/dL (32.0-36.0); MEAN CORPUSCULAR VOLUME 96 fl (80-97); PLATELET COUNT 384 10^3/uL (150-450); RED BLOOD COUNT 5.14 10^6/uL (4.35-5.55); RED CELL DISTRIBUTION WIDTH 15.9 % (11.5-14.0); WHITE BLOOD COUNT 16.5 10^3/uL (4.0-10.5)
[2019-08-26 01:26] LABS: ABSOLUTE MONOCYTES # (MANUAL) 1.5 10^3/uL (0.1-1.4); ANISOCYTOSIS 1+; BASOPHILS % (MANUAL) 0 % (0-2); EOSINOPHILS % (MANUAL) 1 % (0-6); LYMPHOCYTES % (MANUAL) 18 % (13-45); MONOCYTES % (MANUAL) 9 % (3-13); PLATELET COMMENT ADEQUATE; POLYCHROMASIA 1+; SEGMENTED NEUTROPHILS % (MAN) 72 % (42-78); TOTAL CELLS COUNTED 100
[2019-08-26 01:33] LABS: ALBUMIN 3.8 g/dL (3.5-5.0); ALKALINE PHOSPHATASE 112 U/L (38-126); ANION GAP 13 (5-19); ASPARTATE AMINO TRANSFERASE 67 U/L (17-59); BILIRUBIN,TOTAL 0.3 mg/dL (0.2-1.3); BLOOD UREA NITROGEN 3 mg/dL (7-20); CALCIUM 8.6 mg/dL (8.4-10.2); CARBON DIOXIDE 24 mmol/L (22-30); CHLORIDE 109 mmol/L (98-107); GLUCOSE 114 mg/dL (75-110); POTASSIUM 4.1 mmol/L (3.6-5.0); TOTAL PROTEIN 6.7 g/dL (6.3-8.2)
[2019-08-26 01:46] LABS: ALCOHOL 352 mg/dL (NONE DETECTED)
[2019-08-26] MEDS: NORMAL SALINE 1000 ML 1,000 ML IV PRN ×2 (03:59→04:50)
[2019-08-26] MEDS ORDERED: KETOROLAC TROMETHAMINE INJ/PF 30 MG/1 ML SDV IV ONE (04:18)
[2019-08-26] MEDS ORDERED: LORAZEPAM INJ 2 MG/1 ML VIAL IV ONE (04:18)
--- NOTE | 2019-08-26 04:40 | RADIOLOGY REPORT (SQ) ---
EXAM DESCRIPTION: XR FOOT 3 OR MORE VIEWS COMPLETED DATE/TME: 08/26/2019 03:24 CLINICAL HISTORY: 39 years, Male, right 3rd and 4th toe pain COMPARISON: None. NUMBER OF VIEWS: 3 TECHNIQUE: 3 views of the right foot LIMITATIONS: None. FINDINGS: Negative for acute fracture or dislocation. Mild soft tissue swelling. IMPRESSION: No acute osseous abnormality copyright 2010 [employer]- All Rights Reserved
[2019-08-26 04:58] LABS: URINE AMPHETAMINES SCREEN NEGATIVE; URINE BARBITURATES SCREEN NEGATIVE; URINE BENZODIAZEPINES SCREEN NEGATIVE; URINE COCAINE SCREEN NEGATIVE; URINE MARIJUANA (THC) SCREEN NEGATIVE; URINE METHADONE SCREEN NEGATIVE; URINE PHENCYCLIDINE SCREEN NEGATIVE
--- NOTE | 2019-08-26 06:59 | ER Document Report ---
Entered by HALEY WINN SCRIBE 08/26/19 0325 Acting as scribe for:SANTIAGO SALGUERO IV, MD ED Substance Abuse / Acc. OD - General Mode of Arrival: Wheelchair Information source: Patient, Emergency Med Personnel TRAVEL OUTSIDE OF THE [place] IN LAST 30 DAYS: No <SANTIAGO SALGUERO IV - Last Filed: 08/26/19 06:59> <JARET GARCIA - Last Filed: 08/26/19 10:55> - General Chief Complaint: ETOH Abuse Stated Complaint: ALCOHOL INTOXICATION Time Seen by Provider: 08/26/19 03:14 Primary Care Provider: KERWIN SHAW [NO LOCAL MD] - Follow up as needed Notes: This 39 year old male patient presents to the ED today with complaints of ETOH abuse. Patient states that he has been drinking vodka since yesterday. Patient admits that he has been trying to detox on his own, but he keeps going into withdrawal. Patient reportedly admitted to drug use as well, type of drug unknown. He reports myalgia and headache. He also notes a possible broken his right 4th toe per ED nurse. (SANTIAGO SALGUERO IV) - Related Data Allergies/Adverse Reactions: propranolol [Propranolol] Allergy (Unknown, Verified 04/25/19 14:34) Past Medical History - General Information source: Patient - Social History Smoking Status: Current Some Day Smoker Cigarette use (# per day): Yes Chew tobacco use (# tins/day): No Smoking Education Provided: No Frequency of alcohol use: Heavy Drug Abuse: Methamphetamine Family History: Reviewed & Not Pertinent, Arthritis, CVA, Hyperlipidemia, Hyper tension, Malignancy, Thyroid Disfunction Pulmonary Medical History: Reports: Hx Asthma Neurological Medical History: Reports: Hx Migraine Renal/ Medical History: Reports: Hx Kidney Stones Musculoskeletal Medical History: Reports Hx Musculoskeletal Trauma - Clavicle fracture Psychiatric Medical History: Reports: Hx Depression Traumatic Medical History: Reports: Hx Fractures - Clavicle - Immunizations Immunizations up to date: No Hx Diphtheria, Pertussis, Tetanus Vaccination: No <SANTIAGO SALGUERO IV - Last Filed: 08/26/19 06:59> Review of Systems - Review of Systems Constitutional: See HPI, Other - ETOH abuse EENT: No symptoms reported Cardiovascular: No symptoms reported Respiratory: No symptoms reported Gastrointestinal: No symptoms reported Genitourinary: No symptoms reported Male Genitourinary: No symptoms reported Musculoskeletal: See HPI, Muscle pain Skin: No symptoms reported Hematologic/Lymphatic: No symptoms reported Neurological/Psychological: See HPI, Headaches -: Yes All other systems reviewed and negative <SANTIAGO SALGUERO IV - Last Filed: 08/26/19 06:59> Physical Exam - General General appearance: Alert, Anxious In distress: None - HEENT Head: Normocephalic, Atraumatic Eyes: Normal Pupils: PERRL - Respiratory Respiratory status: No respiratory distress Chest status: Nontender Breath sounds: Normal Chest palpation: Normal - Cardiovascular Rhythm: Regular Heart sounds: Normal auscultation Murmur: No Friction rub: No Gallop: None auscultated - Abdominal Inspection: Normal Distension: No distension Bowel sounds: Normal Tenderness: Nontender - Abdomen soft Organomegaly: No organomegaly - Back Back: Normal, Nontender - Extremities General upper extremity: Normal inspection - Neurological Neuro grossly intact: Yes Orientation: AAOx4 [place] Coma Scale Eye Opening: Spontaneous [place] Coma Scale Verbal: Oriented [place] Coma Scale Motor: Obeys Commands [place] Coma Scale Total: 15 - Psychological Associated symptoms: Anxious - Skin Skin irregularity: Erythema - right 4th toe <SANTIAGO SALGUERO IV - Last Filed: 08/26/19 06:59> - Vital signs Vitals: Temp Pulse Resp BP Pulse Ox 99.0 F 106 H 20 147/82 H 95 08/26/19 00:06 08/26/19 00:06 08/26/19 00:06 08/26/19 00:06 08/26/19 00:06 Course - Laboratory Result Diagrams: 08/26/19 00:45 08/26/19 00:45 - Diagnostic Test Radiology reviewed: Reports reviewed <SANTIAGO SALGUERO IV - Last Filed: 08/26/19 06:59> - Laboratory Result Diagrams: 08/26/19 00:45 08/26/19 00:45 <JARET GARCIA - Last Filed: 08/26/19 10:55> - Re-evaluation Re-evalutation: 08/26/19 10:53 Patient was signed out to me by Dr. Santiago Salguero at 0700 hrs. he has been accepted at the [facility] for further treatment of alcoholism. I gave this man 1 dose of Ativan for control of minor withdrawal symptoms. His blood sugar is now been rechecked and is 177. Family members going to pick him up and take him over to [facility] at this time. (JARET GARCIA) - Vital Signs Vital signs: Temp Pulse Resp BP Pulse Ox 98.3 F 106 H 19 133/64 H 96 08/26/19 02:53 08/26/19 00:06 08/26/19 09:01 08/26/19 09:01 08/26/19 09:01 - Laboratory Laboratory results interpreted by me: 08/26/19 08/26/19 00:45 00:45 WBC 16.5 H RDW 15.9 H Abs Neuts (Manual) 11.9 H Abs Monocytes (Manual) 1.5 H Sodium 145.6 H Chloride 109 H BUN 3 L Glucose 114 H AST 67 H ALT 64 H Serum Alcohol 352 H* Discharge <SANTIAGO SALGUERO IV - Last Filed: 08/26/19 06:59> <JARET GARCIA - Last Filed: 08/26/19 10:55> - Discharge Clinical Impression: Acute alcohol intoxication Qualifiers: Complication of substance-induced condition: uncomplicated Qualified Code(s): F10.920 - Alcohol use, unspecified with intoxication, uncomplicated Contusion of right foot Qualifiers: Encounter type: initial encounter Qualified Code(s): S90.31XA - Contusion of right foot, initial encounter Condition: Stable Disposition: OTHER Additional Instructions: Go directly to [facility] for further medical management. Referrals: LOCALMD,NO [NO LOCAL MD] - Follow up as needed I personally performed the services described in the documentation, reviewed and edited the documentation which was dictated to the scribe in my presence, and it accurately records my words and actions.
[2019-08-26] MEDS ORDERED: LORAZEPAM 1 MG TABLET PO SCH (10:00)
[2019-08-26 11:04] VITALS: BP 143/73
== END 2019-08-26 11:04 | disposition other institution (70) ==
LOC: ER 23:53
DX: F10.129 Alcohol abuse with intoxication, unspecified (principal); S90.31XA Contusion of right foot, initial encounter; X58.XXXA Exposure to other specified factors, initial encounter; M79.10 Myalgia, unspecified site; R51 Headache; F17.210 Nicotine dependence, cigarettes, uncomplicated; Z87.442 Personal history of urinary calculi
CPT/HCPCS: 99284; 96361; 96374; 96375; 36415; 80307 ×2; 85025; 80053; 73630; J1885; J2060; J7030